=== PATIENT | male | born 1955 | race Caucasian/White ===

== ENCOUNTER 2017-09-27 10:30 | Outpatient (RCR) | payer MEDICARE, OTHER ==
--- NOTE | 2017-09-10 14:29 | PT INITIAL EVALUATION ---
MEDICAL DIAGNOSIS: Parkinson's G20 TREATMENT DIAGNOSIS: same DATE OF ONSET: 10/08/12 SUBJECTIVE: Nathan Messer presents to physical therapy with complaints related to PSP and Parkinson's. His reports in behalf of Nathan since he is currently limited speaking, however, he will nod yes or no for each question asked. His reports that he was diagnosed with PSP and was able to visit with a specialist in [place] about PSP. Letha reports that he have continued to perform his exercises everyday, however, she states that some days it is very difficult for him to stay on task as he is having a difficult time maintaining focus. She reports that he is becoming more compulsive. She reports that transfers are going well, however, she reports that eating and swallowing are becoming more difficult. She states that he just wants to gum the food and not chew his food and swallow so that he can move to the next bite. She states that they have had zero falls at home since they have someone monitoring his . He reports that he is not having any pain in his body. Furthermore, she reports that she would like for him to exercise and stay as active as he can moving forward. REHAB PROBLEM LIST: Decreased Strength Decreased Endurance Decreased Balance Decreased Function Decreased ADL's Decreased Mobility PREVIOUS MEDICAL HISTORY: See EMR OCCUPATION: Retired OBJECTIVE: Posture: He demonstrates B rounded shoulder and B thoracic kyphosis. ROM: B LE's WNL's with the exception of decreased muscle extensibility of anterior hips and DF. Strength: B hip flexion, abduction, extension, B knee extension, and B knee flexion, and B ankle DF: 4-5. B ankle PF and B hip adduction: 4+/5. He denied any pain with MMT. Special Tests: Mild R hand and B feet tremors at rest. : 6MWT: 1316 feet in 6 minutes without any rest breaks. TU seconds. Cowart Balance Test: with one retro loss of balance Mobility: Able to perform sit to/from standing independently, however, when coming from standing to sitting, he freezes with B UE support and slowly will lower himself to sitting. No LOB with ambulation. Gait: He demonstrated the following gait mechanics with no AD and CGA: equal step lengths, no LOB, good B foot clearance, and decreased pelvic mobility. Balance: with one retro loss of balance ASSESSMENT: Nathan will benefit from skilled physical therapy addressing the listed impairments to maintain and potentially improve his function. 4 weeks: Pt will improve cowart balance test from 37/56 to greater than 41/56 ( which is a significant change or true change) to decrease fall risk and improve function. 4 weeks: Pt will improve timed up and go from baseline to 23 seconds ( which is a significant change or true change) to decrease fall risk and improve function. 4 weeks: Pt will improve 6 minute walk test from baseline to greater than 1500 feet (which is a significant change or true change) to improve endurance and QOL. PATIENT'S GOAL: 4 weeks: To improve eating PLAN: Patient to be seen for Strengthening/condition Spinal Stabilization Work Hardening/Cond Stretching Neuromuscular Re-ed Closed Chain Program Posture/Body mechanics Gait Trg/Balance Trg Home Exercise Program Therapeutic Activities 4x/Week for 4 Weeks If you have any questions, comments, or concerns about this report or plan, please contact me at . Thank you, Brandon Win, PT, DPT [place]
[~2017-09-27 10:30] MED LIST: ASPI-715 PO; ASTA4CAP PO; BACL-1 PO; BIOT800T4 PO; CARB-94 PO; CHOL100034; CHOL100094 PO; CHOL200051 PO; CINN500C12 PO; CYCL10TA29 PO; DOCU-416 PO; DONE10TA45 PO; FISH1CAP15 PO; HYDR-385 PO; KORE100C3 PO; LIDO700A29 TD; LOR5/325 PO; MAGN300C3 PO; MELA3TAB PO; MELA3TAB31 PO; MULT-1167 PO; NALT50TA15 PO; NALT5POW PO; OMEG-11 PO; OXYB5TAB86 PO; OXYC-373 PO; OXYC-865 PO; ROPI0.5T25 PO; SERT-1 PO; SIL50 PO; THYM1TAB PO; TURM500C7 PO; UBID100C48 PO; UBID1CAP94 PO; VIT-7 PO; VITA-175 PO; VITA1CAP46 PO; [UNRECOGNIZED DRUG - CODE]
--- NOTE | 2017-09-27 18:29 | PT PLAN OF CARE ---
Physician: Elsy Gallegos MD Patient is being seen: 2-4x/week Therapist: Brandon Win, PT, DPT Medical Diagnosis: Parkinson's G20 Treatment Diagnosis: same Date of Onset: 10/08/12 Date of Initial Evaluation: 09/10/17 Date patient was last seen: 09/27/17 Number of treatments: 10 Number of cancellations/No shows: 0 INTERVENTIONS: Strengthening/condition Spinal Stabilization Work Hardening/Cond Stretching Neuromuscular Re-ed Closed Chain Program Posture/Body mechanics Gait Trg/Balance Trg Home Exercise Program Therapeutic Activities 4 weeks: Pt will improve fu balance test from 37/56 to greater than 41/56 ( which is a significant change or true change) to decrease fall risk and improve function. 4 weeks: Pt will improve timed up and go from baseline to 23 seconds ( which is a significant change or true change) to decrease fall risk and improve function. 4 weeks: Pt will improve 6 minute walk test from baseline to greater than 1500 feet (which is a significant change or true change) to improve endurance and QOL. PATIENT'S GOAL: 4 weeks: To improve eating Status of Patient's Goals: Progressed Patient Compliance: Excellent Prognosis: Good Reasons for continuing therapy: This is a discharge note for Nathan Messer. He reports that he is doing well. He denies any pain. His reports that he continues to perform his HEP at home. She reports that he continues to be active at home but no falls have occurred due to close supervision. He continues to maintain his current function. However, he did demonstrate an improvement with 6 minute walk test from 33 seconds to 27 seconds. Furthermore, he demonstrated a minimal decrease in his fu balance test. Overall, they are independent on his current HEP. He will be discharged from PT to [facility]. OBJECTIVE: Posture: He demonstrates B rounded shoulder and B thoracic kyphosis. ROM: B LE's WNL's with the exception of decreased muscle extensibility of anterior hips and DF. Strength: B hip flexion, abduction, extension, B knee extension, and B knee flexion, and B ankle DF: 4-5. B ankle PF and B hip adduction: 4+/5. He denied any pain with MMT. Special Tests: Mild R hand and B feet tremors at rest. : 6MWT: 1368 feet in 6 minutes without any rest breaks. TU seconds. Fu Balance Test: 34/56 with one retro loss of balance Mobility: Able to perform sit to/from standing independently, however, when coming from standing to sitting, he freezes with B UE support and slowly will lower himself to sitting. No LOB with ambulation. Gait: He demonstrated the following gait mechanics with no AD and CGA: equal step lengths, no LOB, good B foot clearance, and decreased pelvic mobility. Balance: 34/56 with one retro loss of balance If you have any questions, comments, or concerns about this report or plan, please contact me at . Thank you, Brandon Win, PT, DPT [facility]
== END 2017-09-27 18:00 | disposition home or self-care (01) ==
LOC: PT 10:30
PROVIDERS: ATTEND Psychiatry & Neurology Neurology
DX: G20 Parkinson's disease (principal); G23.1 Progressive supranuclear ophthalmoplegia [Steele-Richardson-Olszewski]
CPT/HCPCS: 97162

== ENCOUNTER 2017-11-12 12:14 | Emergency (ER) | payer MEDICARE, OTHER ==
[~2017-11-12] VITALS: Ht 180.3 cm; Wt 65.8 kg
[2017-11-12] MEDS ORDERED: DONE5TAB74 PO (12:23)
--- NOTE | 2017-11-12 12:24 | ER Report ---
History and Physical Time Seen By MD: 12:24 Hx. of Stated Complaint: FAMILY REPORTS RESP DISTRESS AND COUGH. HPI/ROS CHIEF COMPLAINT: Cough HISTORY OF PRESENT ILLNESS: This is a 61-year-old male who presents to the emergency department with his family for a cough and possible aspiration. According to the family the patient has a progression of a Parkinson's-like disease PSP, and this morning he had a coughing episode fits worse than his typical coughing episodes. The family stating that the episode lasted about 20- 30 minutes. The patient denies choking, chest pain, shortness of breath, aches, chills, nausea, vomiting or diarrhea. REVIEW OF SYSTEMS: Constitutional: No fever, no chills. Eyes: No discharge. ENT: No sore throat. Cardiovascular: No chest pain, no palpitations. Respiratory: As above. Gastrointestinal: No abdominal pain, no vomiting. Genitourinary: No hematuria. Musculoskeletal: No back pain. Skin: No rashes. Neurological: No headache. Allergies: Coded Allergies: corn starch (Verified Allergy, Severe, MIGRAINE, 11/12/17) Uncoded Allergies: thymerisol (Allergy, Severe, rash, 10/13/15) Home Meds Reported Medications Donepezil Hcl (ARICEPT) 5 Mg Tablet, 5 MG PO QDAY, TAB 11/12/17 Carbidopa/Levodopa (CARBIDOPA-LEVODOPA 25-100 TAB) Unknown Strength Tablet, 1 EACH PO TID 10/11/15 Discontinued Reported Medications Cholecalciferol (Vitamin D3) (Vitamin D3) 10,000 Unit Capsule 04/29/16 Thymol/Chlorophyllin (CHLOROPHYLL 3 MG TABLET) 1 Each Tablet, 1 EACH PO 04/29/16 Vitamin B Complex (B COMPLEX) 1 Each Tablet, 1 EACH PO 04/29/16 Ubidecarenone (COQ-10) 100 Mg Capsule, 100 MG PO, CAPSULE 04/29/16 Sertraline Hcl (ZOLOFT) 50 Mg Tablet, 1 TAB PO QDAY, TAB 04/29/16 Multivitamin With Minerals (MEN'S ONE DAILY) 1 Each Tablet, 1 EACH PO QDAY 10/13/15 Donepezil Hcl (DONEPEZIL HCL) 10 Mg Tab.rapdis, 10 MG PO QDAY, TAB 10/11/15 Discontinued Scripts Oxycodone Hcl/Acetaminophen (PERCOCET 5-325 MG TABLET) 1 Each Tablet, 1 EACH PO Q4-6H Y for PAIN, #30 TAB 0 Refills Prov:JOHANNA MATHUR MD 04/29/16 Past Medical/Surgical History Patient has a past medical and surgical history of Parkinson's, PSP, migraines, multiple fractures, facial, back fracture, rib fractures, wrist fracture, toe fracture, arthritis, wears glasses, psoriasis, inguinal hernia repair, appendectomy, tonsillectomy. Reviewed Nurses Notes: Yes Hx Smoking: No Smoking Status: Former Smoker Exposure to Second Hand Smoke?: No Constitutional Vital Sign - Last 24 Hours 11/12/17 11/12/17 11/12/17 11/12/17 12:20 12:30 12:45 13:45 Pulse 101 104 104 105 Resp 18 10 20 14 B/P (MAP) 130/92 138/86 (103) 133/88 (103) Pulse Ox 93 91 88 89 O2 Delivery Room Air 11/12/17 11/12/17 11/12/17 11/12/17 14:00 14:00 14:30 14:45 Pulse 106 106 105 104 Resp 13 13 19 19 Pulse Ox 90 90 90 90 11/12/17 14:46 B/P (MAP) 116/84 (95) Physical Exam General Appearance: The patient is alert, has no immediate need for airway protection and no signs of toxicity. Eyes: Pupils equal and round no pallor or injection. ENT, Mouth: Mucous membranes are dry, with a geographic tongue. Respiratory: There are no retractions, lungs are clear to auscultation. Cardiovascular: Regular rate and rhythm, no murmurs, clicks or rubs. Gastrointestinal: Abdomen is soft and non tender, no masses, bowel sounds normal. Neurological: Alert and oriented 4. Moving all extremities, slowly but baseline for patient. Following all commands. No focal neuro deficits. Skin: Warm and dry, no rashes. Musculoskeletal: Neck is supple non tender. Extremities are nontender, nonswollen and have full range of motion. DIFFERENTIAL DIAGNOSIS: After history and physical exam differential diagnosis was considered for influenza, pneumonia, bronchitis, aspiration pneumonia, congestion, postnasal drip. Medical Decision Making Data Points Laboratory Hematology Test 11/12/17 12:49 Influenza Virus Type A (PCR) Negative (NEGATIVE) Influenza Virus Type B (PCR) Negative (NEGATIVE) Chemistry Test 11/12/17 12:49 Influenza Virus Type A (PCR) Negative (NEGATIVE) Influenza Virus Type B (PCR) Negative (NEGATIVE) EKG/Imaging Imaging Location: [facility] [place] Patient: Nathan Messer : 1955 Visit/Account:[id number] Date of Sevice: 11/12/2017 Exam type: CHEST PA AND LAT History: chronic cough, possible aspiration Comparison: September 17, 2013. Findings: There is hyperinflation of the lung keller. There is no evidence of focal infiltrates, pleural effusions or pulmonary edema. No evidence of a pneumothorax or pneumomediastinum mediastinum. The cardiac silhouette is normal in size. There is osteopenia of the visualized bones and spondylotic changes of the thoracic spine. IMPRESSION: 1. Hyperinflation lung keller although no evidence of acute pulmonary consolidation Report Dictated By: Aisha Rich MD at 11/12/2017 2:19 PM Report E-Signed By: Aisha Rich MD at 11/12/2017 2:20 PM WSN:[email or web address] ED Course/Re-evaluation Clinical Indication for ER IV: IV Access ED Course Patient was admitted to room. A history physical were obtained. Differential diagnoses were considered. An IV was started. An influenza was obtained. A two- view chest x-ray was negative for any acute pulmonary process. Negative influenza. I did review these results with the patient and the family. Patient and family both were pleased with these results. I did instruct him to follow up with neurology as soon as possible for reevaluation of his swallowing. I also encouraged him to follow up with their primary care provider in the meantime as it is difficult to get these neurology appointment scheduled. I also encouraged him to try some saline mist and suction to the nose to help with some of the secretions L suggested increasing fluid intake if at all possible just to be sure to evaluate for and monitor for aspiration. The patient and the family had other questions or concerns and were discharged home. Decision to Disposition Date: Nov 12, 2017 Decision to Disposition Time: 14:40 Depart Departure Latest Vital Signs Vital Signs Date Time Temp Pulse Resp B/P (MAP) Pulse Ox O2 Delivery O2 Flow Rate FiO2 11/12/17 14:46 116/84 (95) 11/12/17 14:45 104 19 90 11/12/17 12:20 Room Air Impression: Primary Impression: Cough Condition: Improved Disposition: HOME OR SELF-CARE Patient Instructions: Acute Cough (ED), Chronic Cough (ED) Additional Instructions: Try to increase fluid intake to help with secretions. Get plenty of rest. You can try a saline rinse/spray to help break up some of the thick mucous in the nose. Follow-up with your primary care provider in the next week to 2 weeks. Try to reschedule the neurology appointment as soon as possible. May return to the emergency department for any other concerns or worsening symptoms. CARIDAD GREGORY STRAIGHTENING PRESS OPERATOR-BC Nov 12, 2017 12:24
--- NOTE | 2017-11-12 14:25 | RADIOLOGY IMAGING REPORT ---
FACILITY: [facility] [place] PATIENT NAME: Nathan Messer : 1955 MR: [id number] V: [id number] EXAM DATE: ORDERING PHYSICIAN: CARIDAD GREGORY TECHNOLOGIST: [facility] Patient: Nathan Messer : 1955 Visit/Account:[id number] Date of Sevice: 11/12/2017 Exam type: CHEST PA AND LAT History: chronic cough, possible aspiration Comparison: September 17, 2013. Findings: There is hyperinflation of the lung keller. There is no evidence of focal infiltrates, pleural effus ions or pulmonary edema. No evidence of a pneumothorax or pneumomediastinum mediastinum. The cardia c silhouette is normal in size. There is osteopenia of the visualized bones and spondylotic changes of the thoracic spine. IMPRESSION: 1. Hyperinflation lung keller although no evidence of acute pulmonary consolidation Report Dictated By: Aisha Rich MD at 11/12/2017 2:19 PM Report E-Signed By: Aisha Rich MD at 11/12/2017 2:20 PM WSN:[email or web address]
[2017-11-12 14:46] VITALS: BP 116/84
== END 2017-11-12 15:00 | disposition home or self-care (01) ==
LOC: ER 12:44
DX: R05 Cough (principal)
CPT/HCPCS: 71046; 87502; 99283

== ENCOUNTER 2017-11-23 11:10 | Outpatient (RCR) | payer MEDICARE, OTHER ==
--- NOTE | 2017-11-20 13:47 | PT INITIAL EVALUATION ---
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 His relates he has declined in mobility, and is only able to do two seated chair exercises, but his aides do stretching and the two exercises daily with him. Nathan has developed more coughing, per Letha, and was seen at [facility] ER 11/12/17 for non-stop coughing, without aspiration or pneumonia. His is on thickened liquid diet. Letha has aides for more hours as she can't get Nathan to bed by herself anymore and notes his transfers are difficult for her. REHAB PROBLEM LIST: Impaired Cognition Decreased ROM Impaired Bed Mobility Impaired Transfers Decreased Endurance Decreased Balance Decreased Function Decreased ADL's Decreased Mobility Decreased Gait PREVIOUS MEDICAL HISTORY: PD, facial, back and rib fractures. OCCUPATION: Retired due to PD, lives with his and daughter, has [employer] aides for morning hygiene, feeding, clean up, evening hygiene and assist to bed. OBJECTIVE: Posture: Standing: Weight between heels and fore feet, upward gaze or eyes closed, mask face, heels together, straight trunk, CGA. Sitting: Leans back, flexed trunk, eyes closed or upward, feet on the floor. ROM: Thoracic extension 50% from neutral, shoulder PROM 100 deg. B, knee flexion contractures 15 degrees, hip flexion contractures 20 degrees. Strength: Sit to stand with min/mod assist of one. Special Tests: AAROM trunk sway seated helped create diaphragmatic breathing. Maureen and Yahr stage 4. Mobility: Rigid trunk stand to sit, with minimal hip flexion, sit to stand with moderate assist of one now. Nathan no longer rolls L or R on the mat table, and doesn't reach with his arms. Bed mobility max. assist of one. Gait: CGA/BUSINESS TRANSFORMATION CONSULTANT of 1 slow cadance with feet just clearing the floor, freezing in turning L and R, no backing steps now. Nathan now needs manual movement of his LE's if he freezes in a turn to move his L or R LE. Balance: Retropulsive, heels together, min. to mod. assist of one to maintain balance. Other Objective Findings: Nathan was able to open his eyes and had his eyes centered in the orbits for 20 seconds after supine trunk rotation stretching. ASSESSMENT: Nathan Messer presents with progressing of his PSP, with caregiver burden, respiration are a problem. He could benefit from a full round of LSVT BIG to improve transfers, respiration to improve quality of life and reduce caregiver burden. He was fatigued after 20 minutes of AAROM today. Short Term Goals/Patient's Goals 4 weeks: Nathan transfers with min. assist of 1, rolls L and R in bed mobility with min. assist of one, and Nathan' reports fewer episodes of coughing. PLAN: Patient to be seen for LSVT BIG Strengthening/condition Range of Motion Stretching Neuromuscular Re-ed Gait Trg/Balance Trg Home Exercise Program 4x/Week for 4 Weeks Thank you for this referral. If you have any questions, comments, or concerns about this report or plan, please contact me at . [facility]
[~2017-11-23 11:10] MED LIST changes: +DONE5TAB74 PO
--- NOTE | 2017-11-26 08:54 | PT PLAN OF CARE ---
Physician: Dr. Elsy Gallegos Patient is being seen: 4 visits Therapist: Maxine Bolden, PT Medical Diagnosis: G20 Parkinson's disease Treatment Diagnosis: Same, G23.1 PSP Date of Onset: 01/06/14 Date of Initial Evaluation: 11/20/17 Date patient was last seen: 11/26/17 Number of treatments: 4 Number of cancellations/No shows: 0 INTERVENTIONS: LSVT BIG Neuromuscular Re-ed, Gait Trg, Home Exercise Program GOALS/PATIENT'S GOAL: 4 weeks: Nathan transfers with min. assist of 1 Partially met (transferred once min. assist of 1, otherwise mod. assist of 2), rolls L and R in bed mobility with min. assist of one (not met), and Nathan' reports fewer episodes of coughing 9not met). Patient Compliance: Excellent Prognosis: Good Reasons for discontinuing therapy: S: Letha, Nathan' (and POA) requested Nathan be discharged from outpatient PT as getting him up and down 6 steps to attend outpatient PT is too difficult due to Nathan' rigidity and eyes being closed from his PSP. Posture: Standing: Weight forward, upward gaze or eyes closed, mask face, heels together, straight trunk, CGA. Sitting: Leans back, flexed trunk, eyes closed or upward, feet on the floor. ROM: Unchanged: Thoracic extension 50% from neutral, shoulder PROM 100 deg. B, knee flexion contractures 15 degrees, hip flexion contractures 20 degrees. Strength: Sit to stand with min/mod assist of two. Gait: Nathan is still able to ambulate but keeps his eyes closed about 90% of the time, even with verbal and tactile cues, mod. assist of one for balance. Special Tests: AAROM trunk sway seated and supine trunk rotation still helped create diaphragmatic breathing. Maureen and Yahr stage 4. Mobility: Rigid trunk stand to sit, with minimal hip flexion, sit to stand with moderate assist of two now. Nathan no longer rolls L or R on the mat table, and doesn't reach with his arms. Bed mobility max. assist of one. Car transfers with max. assist of one with rigidity limiting trunk and head flexion, inability to scoot on the seat. A/P: After one week of seated and supine LSVT BIG, Nathan improved depth of respiration but not mobility and gait. Due to the high fall risk with stairs. I suggest home health evaluation, including PT, for reduced caregiver burden, mobility. I'll DC outpatient PT. Thank you for allowing me to be apart of Nathan Messer's care. VALENTNIA
== END 2017-11-23 18:00 | disposition home or self-care (01) ==
LOC: PT 11:10
PROVIDERS: ATTEND Psychiatry & Neurology Neurology
DX: G20 Parkinson's disease (principal); G23.1 Progressive supranuclear ophthalmoplegia [Steele-Richardson-Olszewski]
CPT/HCPCS: 97162